=== PATIENT | male | born 1990 | race American Indian/Alaskan Native ===

== ENCOUNTER 2019-12-10 11:52 | Emergency (ER) | payer SELFPAY ==
--- NOTE | 2019-12-10 15:45 | XRay Report ---
LUMBOSACRAL SPINE 2 VIEWS INDICATION: back pain. COMPARISON: None. IMPRESSION: Normal alignment. No significant discogenic DJD or facet arthropathy. No acute osseous or soft tissue abnormality. Signer Name: Mateus Levin Jr, MD Signed: 12/10/2019 3:41 PM Workstation Name: [id number]
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
[2019-12-10 17:54] VITALS: BP 136/87
== END 2019-12-10 17:54 | disposition home or self-care (01) ==
LOC: ED 11:52
DX: M54.5 Low back pain (principal); J45.909 Unspecified asthma, uncomplicated; V89.2XXA Person injured in unspecified motor-vehicle accident, traffic, initial encounter; Y93.89 Activity, other specified; Y92.410 Unspecified street and highway as the place of occurrence of the external cause; Y99.8 Other external cause status
CPT/HCPCS: 72100; 99283